=== PATIENT | female | born 1985 | race Caucasian/White ===

== ENCOUNTER 2021-05-01 15:53 | Emergency (ER) | payer MEDICAID ==
[~2021-05-01] VITALS: Ht 162.6 cm; Wt 98.0 kg
--- OUTSIDE RECORDS SUMMARY | 2021-05-01 15:59 | XMS REPORT | CCD ---
Author Author Daria Gautam Organization [facility] Address [address] [place] [address] Phone Care Team Providers Care Chief Librarian Circulation Department Name Role Phone PP Unavailable CCM Unavailable Summary Purpose Interface Exchange Insurance Providers Payer name Policy type / Coverage type Covered democrat ID Effective Begin Date Effective End Date Blue Cross Blue Shield Blue Cross/Blue Shield [id number] Unknown Family history Grandparents Diagnosis Age At Onset Diabetes Unknown Mother Diagnosis Age At Onset No Family Disease Entered N/A Social History Social History Element Codes Description Effective Dates Marital status Unknown 04/05/2021 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 Former smoker 04/05/2021 Number of years using tobacco Unknown [address]: 937347 Currently drinks alcohol 04/05 Frequency of drinks SNOMED CT: 491510634 Drinks rarely 021 Alcohol Misuse Unknown No 04/05/2021 Allergies, Adverse Reactions, Alerts Substance Reaction Codes Entered Date Inactivated Date Status _ Unknown 04/05/2021 No Inactive Date Active Problems Condition Codes Effective Dates Condition Status Encounter for general adult medical examination with a bnormal findings ICD-10: Z00.01 ICD-9: V70.0 04/06/2021 Active Beto's thyroiditis ICD-10: E06.3 ICD-9: 245.2 04/05/2021 Active Primary hypertension ICD-10: I10 ICD-9: 401.9 04/05/2021 Active Type 2 diabetes, controlled, with neuropathy ICD-10: E ICD-9: 250.60 04/05/2021 Active Hypertension Unknown 04/05/2021 Active BMI 40.0-44.9, adult ICD-10: Z68.41 ICD-9: V85.41 04/05/2021 Active Gastroesophageal reflux disease, unspecified whether e sophagitis present ICD-10: K21.9 ICD-9: 530.81 04/05/2021 Active Nasal congestion ICD-10: R09.81 ICD-9: 478.19 04/05/2021 Active Restless leg ICD-10: G25.81 ICD-9: 333.94 04/05/2021 Active Medications Medication Codes Instructions Start Date Stop Date Status Fill Instructions omeprazole 20 mg capsule,delayed release RxNorm: 683690 1 Capsule(s) Oral two times a day 04/05/2021 07/03/2021 Active Invokana 300 mg tablet RxNorm: 9194015 1 Tablet(s) Oral QD 04/05/2007/03/2021 Active levothyroxine 100 mcg tablet RxNorm: 555045 1 Tablet(s) Oral QD 07/03/2021 Active pramipexole 0.25 mg tablet RxNorm: 356437 Take 1 Tablet (s) Oral QPM 2-3 hours before bedtime to replace ropinirole 04/05/2021 05/04/2021 Active gabapentin 100 mg capsule RxNorm: 615971 Take 1 Capsule(s) Oral QD 04/05/2021 07/03/2021 Active fluticasone propionate 50 mcg/actuation nasal spray,suspensi on RxNorm: 6971745 Take 1 [place] Nasal QD in each nostrilas needed 04/05/2021 07/03/2021 A ctive amlodipine 5 mg tablet RxNorm: 284986 1 Tablet(s) Oral QD 04/05/2021 07/03/2021 Active Invokana 300 mg tablet RxNorm: 1583794 1 Tablet(s) Oral QD 04/05/2004/04/2021 Inactive ropinirole 1 mg tablet RxNorm: 633924 1 Tablet(s) Oral QPM 04/05/2004/05/2021 Inactive omeprazole 20 mg capsule,delayed release RxNorm: 685059 1 Capsule(s) Oral two times a day 04/05/2021 2021 Inactive levothyroxine 100 mcg tablet RxNorm: 477155 1 Tablet(s) Oral QD 2021 Inactive amlodipine 5 mg tablet RxNorm: 470613 1 Tablet(s) Oral QD 04/05/2021 2021 Inactive levothyroxine 100 mcg capsule RxNorm: 404988 oral 04/05/2021 Inactive Medication Administered No Medication Administered data Immunizations Vaccine Codes Date Status Influenza CVX: 141 02/17/2021 Covid-19 CVX: 207 09/17/2020 Results Observation Observation Code Item Item Code Result Date S ervice Location COMPLETE BLOOD COUNT [id number] WBC 5.7 10e9/L 04/06/20 21 Unknown COMPLETE BLOOD COUNT [id number] RBC 4.77 10e12/L 2020 Unknown COMPLETE BLOOD COUNT [id number] HEMOGLOBIN 13.7 g/dL 04/06/20 Unknown COMPLETE BLOOD COUNT [id number] HEMATOCRIT 44.3 % 04/06/20 Unknown COMPLETE BLOOD COUNT [id number] MCV 92.9 fL 1 Unknown COMPLETE BLOOD COUNT [id number] MCH 28.7 pg 1 Unknown COMPLETE BLOOD COUNT [id number] MCHC 30.9 g/dL 1 Unknown COMPLETE BLOOD COUNT [id number] PLATELET COUNT 351 10e9/L Unknown COMPLETE BLOOD COUNT [id number] Mean Plt Volume 9.6 fL Unknown COMPLETE BLOOD COUNT [id number] Neut Auto 37.5 % 1 Unknown COMPLETE BLOOD COUNT [id number] Lymph Auto 42.0 % 04/06/20 Unknown COMPLETE BLOOD COUNT [id number] [place] Auto 14.1 % 1 Unknown COMPLETE BLOOD COUNT [id number] RDW 18.7 % 1 Unknown COMPLETE BLOOD COUNT [id number] Eos Auto 5.5 % 1 Unknown COMPLETE BLOOD COUNT [id number] Baso Auto 0.9 % 1 Unknown COMPLETE BLOOD COUNT [id number] Neutrophil Abs 2.14 10e9/L Unknown COMPLETE BLOOD COUNT [id number] Lymphocyte Abs 2.39 10e9/L Unknown COMPLETE BLOOD COUNT [id number] Monocyte Abs 0.80 10e9/L 03/20 Unknown COMPLETE BLOOD COUNT [id number] Eosinophil Abs 0.31 10e9/L Unknown COMPLETE BLOOD COUNT [id number] RDW-SD 62.2 fL Unknown COMPLETE BLOOD COUNT [id number] Basophil Abs 0.05 10e9/L 03/20 Unknown Procedures Procedure Codes Date ROUTINE VENIPUNCTURE CPT-4: 59652 04/06/2021 ASSAY OF FREE THYROXINE CPT-4: 85184 04/06/2021 ASSAY THYROID STIM HORMONE CPT-4: 70104 04/06/2021 COMPREHEN METABOLIC PANEL CPT-4: 34735 04/06/2021 COMPLETE CBC W/AUTO DIFF WBC CPT-4: 83083 04/06/2021 LIPID PANEL CPT-4: 81107 04/06/2021 A1C HPLC CPT-4: 23225 04/06/2021 Vital Signs Date Vital 04/05/2021 Blood Pressure 1: 124/62 Code: 8480-6 BMI: 41.3 Code: 42060-6 Heart Rate 1: 95 bpm Height: 5'2" Code: 8302-2 Respiratory Rate: 17 bpm SpO2: 96% Temperature: 36.7 (C) / 98.0 (F) Weight: 226 lbs Code: 48702-4 Functional Status No Functional Status data Reason For Visit Reason For Visit Effective Dates Notes ~generic 04/05/2021 [address] patient [facility] Encounters Encounter Performer Location Codes Date () NURSE/OUTPATIENT VISIT EST Diagnosis: Primary hypertension[ICD10: I10] Diagnosis: Beto's thyroiditis[ICD10: E06.3] Diagnosis: Type 2 diabetes, controlled, 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] Diagnosis: Encounter for general adult medical examination with abnormal findings[ICD10: Z00.01] Kelly EASTON DO [facility] CPT-4: 53522 04/06/2021 ([id number]) OFFICE/OUTPATIENT VISIT NEW Diagnosis: Primary hypertension[ICD10: I10] Diagnosis: Restless leg[ICD10: G25.81] Diagnosis: Beto's thyroiditis[ICD10: E06.3] Diagnosis: BMI 40.0-44.9, adult[ICD10: Z68.41] Diagnosis: Type 2 diabetes, controlled, 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] Diagnosis: Nasal congestion[ICD10: R09.81] Diagnosis: Gastroesophageal reflux disease, unspecified whether esophagitis present[ICD10: K21.9] Carli BOOQUELINE LawandaAlejandro EASTON DO [facility] CPT-4: 99 204 04/05/2021 Plan of Care Planned Activity Notes Codes Status Date Visit Diagnosis Plan: Nasal congestion Discussion: Vidal nase, can use nasal rinses. ICD-9 : 478.19 ICD-10 : R09.81 04/05/2021 Visit Diagnosis Plan: Restless leg Discussion: Change ropinirole to mirapex ICD-9 : 333.94 ICD-10 : G25.81 04/05/2021 Visit Diagnosis Plan: BMI 40.0-44.9, adult Discussion: Discussed diet, exercise. Patient would like to start medication- will make appt to discuss. ICD-9 : V85.41 ICD-10 : Z68.41 04/05/2021 Visit Diagnosis Plan: Gastroesophageal r eflux disease, unspecified whether esophagitis present Discussion: Stable on omeprazole ICD-9 : 530.81 ICD-10 : K21.9 04/05/2021 Visit Diagnosis Plan: Beto's thyroiditis Discussi on: Will update tsh, free t4 ICD-9 : 245.2 ICD-10 : E06.3 04/05/2021 Visit Diagnosis Plan: Primary hypertension Discussion: Stable on amlodipine- will update fasting lab tomorrow Follow Up: 3 months ICD-9 : 401.9 ICD-10 : I10 04/05/2021 Visit Diagnosis Plan: Type 2 diabetes, controlled, wit h neuropathy Discussion: Taking invokana- will update labs. Restart gabapentin 100 mg daily for neuropathy. Follow Up: 3 months ICD-9 : 250.60 ICD-10 : E11.40 04/05/2021 Appointment: Carli [facility] [phone] [id number] [facility] 04/05/2021 Patient Education: Patient Medication Summary Completed 04/05/2021 Patient Education: [employer] Discount Card Patient Savings Mess age Completed 04/05/2021 Patient Education: Invokana- OptimizeRX Coupon [phone] [email or web address]/[email or web address]/resources/getResource/61/[email or web address]-77 Completed 04/05/2021 Patient Education: gabapentin- OptimizeRX Coupon [phone] https://[email or web address]/samplemd/resources/getResource/61/[email or web address] Completed 04/05/2021 Patient Education: High Blood Pressure Co mpleted 04/05/2021 Instructions No Instructions Medical Equipment No Medical Equipment data Health Concerns Section Health Concerns data not found Goals Section Goals data not found Interventions Section Interventions data not found Health Status Evaluations/Outcomes Section Health Status Evaluations/Outcomes data not found Advance Directives No Advance Directive data
--- OUTSIDE RECORDS SUMMARY | 2021-05-01 15:59 | XMS REPORT | CCD ---
Author Author Daria Gautam Organization [facility] Address [address] [place] [address] Phone Care Team Providers Care Welder First Class Name Role Phone PP Unavailable CCM Unavailable Summary Purpose Interface Exchange Insurance Providers Payer name Policy type / Coverage type Covered republican ID Effective Begin Date Effective End Date Blue Cross Blue Shield Blue Cross/Blue Shield [id number] Unknown Family history Grandparents Diagnosis Age At Onset Diabetes Unknown Mother Diagnosis Age At Onset No Family Disease Entered N/A Social History Social History Element Codes Description Effective Dates Marital status Unknown 04/05/2021 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 Former smoker 04/05/2021 Number of years using tobacco Unknown [address]: 319228 Currently drinks alcohol 04/05 Frequency of drinks SNOMED CT: 326541886 Drinks rarely 021 Alcohol Misuse Unknown No [...] Instructions omeprazole 20 mg capsule,delayed release RxNorm: 511703 1 Capsule(s) Oral two times a day 04/05/2021 07/03/2021 Active Invokana 300 mg tablet RxNorm: 1088848 1 Tablet(s) Oral QD 04/05/2007/03/2021 Active levothyroxine 100 mcg tablet RxNorm: 057441 1 Tablet(s) Oral QD 07/03/2021 Active pramipexole 0.25 mg tablet RxNorm: 796461 Take 1 Tablet (s) Oral QPM 2-3 hours before bedtime to replace ropinirole 04/05/2021 05/04/2021 Active gabapentin 100 mg capsule RxNorm: 488159 Take 1 Capsule(s) Oral QD 04/05/2021 07/03/2021 Active fluticasone propionate 50 mcg/actuation nasal spray,suspensi on RxNorm: 9785513 Take 1 [place] Nasal QD in each nostrilas needed 04/05/2021 07/03/2021 A ctive amlodipine 5 mg tablet RxNorm: 296457 1 Tablet(s) Oral QD 04/05/2021 07/03/2021 Active Invokana 300 mg tablet RxNorm: 0773996 1 Tablet(s) Oral QD 04/05/2004/04/2021 Inactive ropinirole 1 mg tablet RxNorm: 457558 1 Tablet(s) Oral QPM 04/05/2004/05/2021 Inactive omeprazole 20 mg capsule,delayed release RxNorm: 765173 1 Capsule(s) Oral two times a day 04/05/2021 2021 Inactive levothyroxine 100 mcg tablet RxNorm: 241339 1 Tablet(s) Oral QD 2021 Inactive amlodipine 5 mg tablet RxNorm: 738960 1 Tablet(s) Oral QD 04/05/2021 2021 Inactive levothyroxine 100 mcg capsule RxNorm: 359008 oral 04/05/2021 Inactive Medication Administered No Medication Administered data Immunizations Vaccine Codes Date Status Influenza CVX: 141 02/17/2021 Covid-19 CVX: 207 09/17/2020 Results Observation Observation Code Item Item Code Result Date S ervice Location COMPLETE BLOOD COUNT [id number] WBC 5.7 10e9/L 04/06/20 21 Unknown COMPLETE BLOOD COUNT [id number] RBC 4.77 10e12/L 2020 Unknown COMPLETE BLOOD COUNT [id number] HEMOGLOBIN 13.7 g/dL 04/06/20 Unknown COMPLETE BLOOD COUNT [id number] HEMATOCRIT 44.3 % 04/06/20 Unknown COMPLETE BLOOD COUNT [id number] MCV 92.9 fL 1 Unknown COMPLETE BLOOD COUNT [id number] MCH 28.7 pg 1 Unknown COMPLETE BLOOD COUNT [id number] MCHC 30.9 g/dL 1 Unknown COMPLETE BLOOD COUNT [id number] PLATELET COUNT 351 10e9/L Unknown COMPLETE BLOOD COUNT 0876315 Mean Plt Volume 9.6 fL Unknown COMPLETE BLOOD COUNT 2200149 Neut Auto 37.5 % 1 Unknown COMPLETE BLOOD COUNT [id number] Lymph Auto 42.0 % 04/06/20 Unknown COMPLETE BLOOD COUNT 1256373 [place] Auto 14.1 % 1 Unknown COMPLETE BLOOD COUNT 1480804 RDW 18.7 % 1 Unknown COMPLETE BLOOD COUNT 7915967 Eos Auto 5.5 % 1 Unknown COMPLETE BLOOD COUNT 9479321 Baso Auto 0.9 % 1 Unknown COMPLETE BLOOD COUNT 4440382 Neutrophil Abs 2.14 10e9/L Unknown COMPLETE BLOOD COUNT [id number] Lymphocyte Abs 2.39 10e9/L Unknown COMPLETE BLOOD COUNT [id number] Monocyte Abs 0.80 10e9/L 03/20 Unknown COMPLETE BLOOD COUNT [id number] Eosinophil Abs 0.31 10e9/L Unknown COMPLETE BLOOD COUNT [id number] RDW-SD 62.2 fL Unknown COMPLETE BLOOD COUNT [id number] Basophil Abs 0.05 10e9/L 03/20 Unknown Procedures Procedure Codes Date ROUTINE VENIPUNCTURE CPT-4: 25518 04/06/2021 ASSAY OF FREE THYROXINE CPT-4: 11056 04/06/2021 ASSAY THYROID STIM HORMONE CPT-4: 40058 04/06/2021 COMPREHEN METABOLIC PANEL CPT-4: 42899 04/06/2021 COMPLETE CBC W/AUTO DIFF WBC CPT-4: 62678 04/06/2021 LIPID PANEL CPT-4: 37364 04/06/2021 A1C HPLC CPT-4: 99599 04/06/2021 Vital Signs Date Vital 04/05/2021 Blood Pressure 1: 124/62 Code: 8480-6 BMI: 41.3 Code: 84167-1 Heart Rate 1: 95 bpm Height: 5'2" Code: 8302-2 Respiratory Rate: 17 bpm SpO2: 96% Temperature: 36.7 (C) / 98.0 (F) Weight: 226 lbs Code: 21517-9 Functional Status No Functional Status data Reason For Visit Reason For Visit Effective Dates Notes ~generic 04/05/2021 new patient [facility] Encounters Encounter Performer Location Codes Date () NURSE/OUTPATIENT VISIT EST Diagnosis: Primary hypertension[ICD10: I10] Diagnosis: Beto's thyroiditis[ICD10: E06.3] Diagnosis: Type 2 diabetes, controlled, 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] Diagnosis: Encounter for general adult medical examination with abnormal findings[ICD10: Z00.01] Kelly EASTON DO [facility] CPT-4: 63984 04/06/2021 ([id number]) OFFICE/OUTPATIENT VISIT NEW Diagnosis: Primary hypertension[ICD10: I10] Diagnosis: Restless leg[ICD10: G25.81] Diagnosis: Beto's thyroiditis[ICD10: E06.3] Diagnosis: BMI 40.0-44.9, adult[ICD10: Z68.41] Diagnosis: Type 2 diabetes, controlled, 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] Diagnosis: Nasal congestion[ICD10: R09.81] Diagnosis: Gastroesophageal reflux disease, unspecified whether esophagitis present[ICD10: K21.9] Carli BOOQUELINE LawandaAlejandro EASTON DO [facility] CPT-4: 99 204 04/05/2021 Plan of Care [...] 04/05/2021 Appointment: Carli Gautam [facility]Ptel[facility] [phone] [id number] NEW PATIENT 04/05/2021 Patient Education: Patient Medication Summary Completed 04/05/2021 Patient Education: [employer] Discount Card Patient Savings Mess age Completed 04/05/2021 Patient Education: Invokana- OptimizeRX Coupon [phone] [email or web address]://[email or web address]/[email or web address]/resources/getResource/61/[email or web address] Completed 04/05/2021 Patient Education: gabapentin- OptimizeRX Coupon [phone] https://[email or web address]/samplemd/resources/getResource/61/[email or web address] Completed 04/05/2021 Patient Education: High Blood Pressure Co mpleted 04/05/2021 Instructions No Instructions Medical Equipment No Medical Equipment data Health Concerns Section Health Concerns data not found Goals Section Goals data not found Interventions Section Interventions data not found Health Status Evaluations/Outcomes Section Health Status Evaluations/Outcomes data not found Advance Directives No Advance Directive data
--- OUTSIDE RECORDS SUMMARY | 2021-05-01 15:59 | XMS REPORT | CCD ---
Author Author Daria Gautam Organization [facility] Address [address] [place] [address] Phone Care Team Providers Care Social Media Developer Name Role Phone PP Unavailable CCM Unavailable Summary Purpose Interface Exchange Insurance Providers Payer name Policy type / Coverage type Covered democrat ID Effective Begin Date Effective End Date [place] [employer] PRO Medicaid [id number] Unknown Family history Grandparents Diagnosis Age At Onset Diabetes Unknown Mother Diagnosis Age At Onset No Family Disease Entered N/A Social History Social History Element Codes Description Effective Dates Marital status Unknown 04/05/2021 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 Former smoker 04/05/2021 Number of years using tobacco Unknown [address]: 066898 Currently drinks alcohol 04/05 Frequency of drinks SNOMED CT: 332971266 Drinks rarely 021 Alcohol Misuse Unknown No 04/05/2021 Allergies, Adverse Reactions, Alerts Substance Reaction Codes Entered Date Inactivated Date Status _ Unknown 04/05/2021 No Inactive Date Active Problems Condition Codes Effective Dates Condition Status Abdominal distention ICD-10: R14.0 ICD-9: 787.3 05/01/2021 Active Continuous severe abdominal pain ICD-10: R10.9 ICD-9: 789.00 05/01/2021 Active Elevated triglycerides with high cholesterol ICD-10: E 78.2 ICD-9: 272.2 05/01/2021 Active Encounter for general adult medical examination with a bnormal findings ICD-10: Z00.01 ICD-9: V70.0 04/06/2021 Active Beto's thyroiditis ICD-10: E06.3 ICD-9: 245.2 04/05/2021 Active Primary hypertension ICD-10: I10 ICD-9: 401.9 04/05/2021 Active Type 2 diabetes, controlled, with neuropathy ICD-10: E 11.40 ICD-9: 250.60 04/05/2021 Active Hypertension Unknown 04/05/2021 Active BMI 40.0-44.9, adult ICD-10: Z68.41 ICD-9: V85.41 04/05/2021 Active Gastroesophageal reflux disease, unspecified whether e sophagitis present ICD-10: K21.9 ICD-9: 530.81 04/05/2021 Active Nasal congestion ICD-10: R09.81 ICD-9: 478.19 04/05/2021 Active Restless leg ICD-10: G25.81 ICD-9: 333.94 04/05/2021 Active Medications Medication Codes Instructions Start Date Stop Date Status Fill Instructions rosuvastatin 40 mg tablet RxNorm: 968665 1 Tablet(s) Oral QD 2020 No Stop Date Active omeprazole 20 mg capsule,delayed release RxNorm: 896714 1 Capsule(s) Oral two times a day 04/05/2021 07/03/2021 Active Invokana 300 mg tablet RxNorm: 7151848 1 Tablet(s) Oral QD 04/05/2007/03/2021 Active levothyroxine 100 mcg tablet RxNorm: 477244 1 Tablet(s) Oral QD 07/03/2021 Active pramipexole 0.25 mg tablet RxNorm: 497582 Take 1 Tablet (s) Oral QPM 2-3 hours before bedtime to replace ropinirole 04/05/2021 05/04/2021 Active gabapentin 100 mg capsule RxNorm: 304472 Take 1 Capsule(s) Oral QD 04/05/2021 07/03/2021 Active fluticasone propionate 50 mcg/actuation nasal spray,suspensi on RxNorm: 7093439 Take 1 [place] Nasal QD in each nostrilas needed 04/05/2021 07/03/2021 A ctive amlodipine 5 mg tablet RxNorm: 337731 1 Tablet(s) Oral QD 04/05/2021 07/03/2021 Active Invokana 300 mg tablet RxNorm: 2590702 1 Tablet(s) Oral QD 04/05/20 21 2021 Inactive ropinirole 1 mg tablet RxNorm: 893652 1 Tablet(s) Oral QPM 04/05/20 21 04/05/2021 Inactive omeprazole 20 mg capsule,delayed release RxNorm: 916552 1 Capsule(s) Oral two times a day 04/05/2021 2021 Inactive levothyroxine 100 mcg tablet RxNorm: 974301 1 Tablet(s) Oral QD 2021 Inactive amlodipine 5 mg tablet RxNorm: 250477 1 Tablet(s) Oral QD 04/05/2021 2021 Inactive levothyroxine 100 mcg capsule RxNorm: 277906 oral 04/05/2021 Inactive Medication Administered No Medication Administered data Immunizations Vaccine Codes Dose Date Status Influenza CVX: 141 02/17/2021 Covid-19 CVX: 207 09/17/2020 Results Observation Observation Code Item Item Code Result Date S ervice Location COMPLETE BLOOD COUNT [id number] WBC 5.7 10e9/L 04/06/20 21 Unknown COMPLETE BLOOD COUNT [id number] RBC 4.77 10e12/L 2020 Unknown COMPLETE BLOOD COUNT [id number] HEMOGLOBIN 13.7 g/dL 04/06/20 21 Unknown COMPLETE BLOOD COUNT [id number] HEMATOCRIT 44.3 % 04/06/20 21 Unknown COMPLETE BLOOD COUNT [id number] MCV 92.9 fL 1 Unknown COMPLETE BLOOD COUNT [id number] MCH 28.7 pg 1 Unknown COMPLETE BLOOD COUNT [id number] MCHC 30.9 g/dL 1 Unknown COMPLETE BLOOD COUNT [id number] PLATELET COUNT 351 10e9/L Unknown COMPLETE BLOOD COUNT [id number] Mean Plt Volume 9.6 fL Unknown COMPLETE BLOOD COUNT [id number] Neut Auto 37.5 % 1 Unknown COMPLETE BLOOD COUNT [id number] Lymph Auto 42.0 % 04/06/20 21 Unknown COMPLETE BLOOD COUNT [id number] [place] Auto 14.1 % 1 Unknown COMPLETE BLOOD COUNT [id number] RDW 18.7 % 1 Unknown COMPLETE BLOOD COUNT [id number] Eos Auto 5.5 % 1 Unknown COMPLETE BLOOD COUNT [id number] Baso Auto 0.9 % Unknown COMPLETE BLOOD COUNT [id number] Neutrophil Abs 2.14 10e9/L Unknown COMPLETE BLOOD COUNT 1434405 Lymphocyte Abs 2.39 10e9/L Unknown COMPLETE BLOOD COUNT [id number] Monocyte Abs 0.80 10e9/L 03/20 Unknown COMPLETE BLOOD COUNT [id number] Eosinophil Abs 0.31 10e9/L Unknown COMPLETE BLOOD COUNT [id number] RDW-SD 62.2 fL Unknown COMPLETE BLOOD COUNT 8140715 Basophil Abs 0.05 10e9/L 03/20 Unknown MEAN GLUC 8418113 Calc Mean Gluc 126 mg/dL 04/06/2021 Unkn own GFR CALC 0469614 GFR Non Afr Amr >60 mL/min 04/06/2021 Un known GFR CALC 0670743 GFR Afr Amr >60 mL/min 04/06/2021 Unknow n THYROID STIMULATING HORMONE 84829 TSH 4.576 uIU/mL 04/06/2021 Unknown FREE T4 51736 T4 Free 0.90 ng/dL 04/06/2021 Unknown LIPID GROUP 73446 Cholesterol 382 mg/dL 04/06/2021 Unkno wn LIPID GROUP 97281 Triglyceride 636 mg/dL 04/06/2021 Unkn own LIPID GROUP 12226 HDL CHOLESTEROL 42 mg/dL 04/06/2021 U nknown LIPID GROUP 18324 Chol/HDL Ratio 9.10 ratio 04/06/2021 U nknown LIPID GROUP 32104 NON-HDL Chol 340 mg/dL 04/06/2021 Unkn own LIPID GROUP 05851 LDL Cholesterol N/A Trig >400 mg/dL Unknown COMPREHENSIVE METABOLIC 45267 AST 101 U/L 2020 Unknown COMPREHENSIVE METABOLIC 12276 ALT 115 U/L 2020 Unknown COMPREHENSIVE METABOLIC 69614 BUN 10 mg/dL 2020 Unknown COMPREHENSIVE METABOLIC 01686 ALBUMIN 4.6 g/dL 2020 Unknown COMPREHENSIVE METABOLIC 34072 CHLORIDE 100 mmol/L 04/06 Unknown COMPREHENSIVE METABOLIC 00067 Bili Total 0.7 mg/dL 04/06 Unknown COMPREHENSIVE METABOLIC 14929 ALK PHOS 98 U/L 11/18/ 2021 Unknown COMPREHENSIVE METABOLIC 69429 SODIUM 136 mmol/L 04/06 Unknown COMPREHENSIVE METABOLIC 34737 CREATININE 0.66 mg/dL 03/20 Unknown COMPREHENSIVE METABOLIC 94615 CALCIUM 10.0 mg/dL 04/06 Unknown COMPREHENSIVE METABOLIC 89344 POTASSIUM 4.4 mmol/L 04/06 Unknown COMPREHENSIVE METABOLIC 63529 Total Protein 8.0 g/dL Unknown COMPREHENSIVE METABOLIC 37716 Glucose 126 mg/dL 2020 Unknown COMPREHENSIVE METABOLIC 93699 Bicarbonate 24 mmol/L 03/20 Unknown COMPREHENSIVE METABOLIC 73885 AGAP 12 mmol/L 2020 Unknown GLYCOSYLATED HEMOGLOBIN TEST 15371 Hgb A1c 83278-4 6.0 % 1 06/06/2020 Unknown Procedures Procedure Codes Date ROUTINE VENIPUNCTURE CPT-4: 40960 04/06/2021 ASSAY OF FREE THYROXINE CPT-4: 92163 04/06/2021 ASSAY THYROID STIM HORMONE CPT-4: 81404 04/06/2021 COMPREHEN METABOLIC PANEL CPT-4: 24712 04/06/2021 COMPLETE CBC W/AUTO DIFF WBC CPT-4: 04284 04/06/2021 LIPID PANEL CPT-4: 47036 04/06/2021 A1C HPLC CPT-4: 18750 04/06/2021 Vital Signs Date Vital 05/01/2021 Blood Pressure 1: 133/79 Code: 8480-6 BMI: 39.5 Code: 89237-3 Heart Rate 1: 88 bpm Height: 5'2" Code: 8302-2 Respiratory Rate: 16 bpm SpO2: 98% Temperature: 37.0 (C) / 98.6 (F) Weight: 216 lbs Code: 48204-3 04/05/2021 Blood Pressure 1: 124/62 Code: 8480-6 BMI: 41.3 Code: 14639-1 Heart Rate 1: 95 bpm Height: 5'2" Code: 8302-2 Respiratory Rate: 17 bpm SpO2: 96% Temperature: 36.7 (C) / 98.0 (F) Weight: 226 lbs Code: 79633-4 Functional Status No Functional Status data Reason For Visit Reason For Visit Effective Dates Notes abdominal pain 05/01/2021 ~generic 04/05/2021 new patient establis hment Encounters Encounter Performer Location Codes Date (90684) OFFICE/OUTPATIENT VISIT EST Diagnosis: Abdominal distention[ICD10: R14.0] Diagnosis: Continuous severe abdominal pain[ICD10: R10.9] Diagnosis: Elevated triglycerides with high cholesterol[ICD10: E78.2] Carli SWAIN [employer] CPT-4: 21044 05/01/2021 ([id number]) NURSE/OUTPATIENT VISIT EST Diagnosis: Primary hypertension[ICD10: I10] Diagnosis: Beto's thyroiditis[ICD10: E06.3] Diagnosis: Type 2 diabetes, controlled, 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] Diagnosis: Encounter for general adult medical examination with abnormal findings[ICD10: Z00.01] Kelly SWAIN [employer] CPT-4: 41898 04/06/2021 ([id number]) OFFICE/OUTPATIENT VISIT NEW Diagnosis: Primary hypertension[ICD10: I10] Diagnosis: Restless leg[ICD10: G25.81] Diagnosis: Beto's thyroiditis[ICD10: E06.3] Diagnosis: BMI 40.0-44.9, adult[ICD10: Z68.41] Diagnosis: Type 2 diabetes, controlled, 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] Diagnosis: Nasal congestion[ICD10: R09.81] Diagnosis: Gastroesophageal reflux disease, unspecified whether esophagitis present[ICD10: K21.9] Carli SWAIN [employer] CPT-4: 99 204 04/05/2021 Plan of Care Planned Activity Notes Codes Status Date Visit Diagnosis Plan: Continuous severe abdominal pain Discussion: Will need labs, imaging, pain medication-discussed with patient and advised her to present to [facility] ED due to severity of pain/symptoms and possible pancreatitis. Questions answered, patient voiced understanding. ICD-9 : 789.00 ICD-10 : R10.9 05/01/2021 Patient Education: Patient Medication Summary Completed 05/01/2021 [facility]ointment[facility] Kelly [facility] [phone] [id number] [facility] 04/06/2021 Visit Diagnosis Plan: Nasal congestion Discussion: Vidal [...] 04/05/2021 Appointment: Carli Gautam WPtel: [phone] [facility] NEW PATIENT 04/05/2021 Patient Education: Patient Medication Summary Completed 04/05/2021 Patient Education: [employer] Discount Card Patient Savings Mess age Completed 04/05/2021 Patient Education: Invokana- OptimizeRX Coupon [phone] https://www.eMeter/samplemd/resources/getResource/61/ha1p8xdc-85ii-03mk-57 Completed 04/05/2021 Patient Education: gabapentin- OptimizeRX Coupon [phone] https://www.eMeter/samplemd/resources/getResource/61/ui2q54c1-40yt-7g88-a0 Completed 04/05/2021 Patient Education: High Blood Pressure Co mpleted 04/05/2021 Instructions No Instructions Medical Equipment No Medical Equipment data Health Concerns Section Health Concerns data not found Goals Section Goals data not found Interventions Section Interventions data not found Health Status Evaluations/Outcomes Section Health Status Evaluations/Outcomes data not found Advance Directives No Advance Directive data
--- OUTSIDE RECORDS SUMMARY | 2021-05-01 15:59 | XMS REPORT | CCD ---
Author Author Daria Gautam Organization [facility] Address [address] [place] [address] Phone Care Team Providers Care Senior Oracle Database Administrator Name Role Phone PP Unavailable CCM Unavailable Summary Purpose Interface Exchange Insurance Providers Payer name Policy type / Coverage type Covered republican ID Effective Begin Date Effective End Date [place] [employer] PRO Medicaid [id number] Unknown Family history Grandparents Diagnosis Age At Onset Diabetes Unknown Mother Diagnosis Age At Onset No Family Disease Entered N/A Social History Social History Element Codes Description Effective Dates Marital status Unknown 04/05/2021 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 Former smoker 04/05/2021 Number of years using tobacco Unknown [address]: 054077 Currently drinks alcohol 04/05 Frequency of drinks SNOMED CT: 847273450 Drinks rarely 021 Alcohol Misuse Unknown No [...] Fill Instructions rosuvastatin 40 mg tablet RxNorm: 362840 1 Tablet(s) Oral QD 2020 No Stop Date Active omeprazole 20 mg capsule,delayed release RxNorm: 605546 1 Capsule(s) Oral two times a day 04/05/2021 07/03/2021 Active Invokana 300 mg tablet RxNorm: 8726920 1 Tablet(s) Oral QD 04/05/2007/03/2021 Active levothyroxine 100 mcg tablet RxNorm: 321402 1 Tablet(s) Oral QD 07/03/2021 Active pramipexole 0.25 mg tablet RxNorm: 364950 Take 1 Tablet (s) Oral QPM 2-3 hours before bedtime to replace ropinirole 04/05/2021 05/04/2021 Active gabapentin 100 mg capsule RxNorm: 058537 Take 1 Capsule(s) Oral QD 04/05/2021 07/03/2021 Active fluticasone propionate 50 mcg/actuation nasal spray,suspensi on RxNorm: 7260920 Take 1 [place] Nasal QD in each nostrilas needed 04/05/2021 07/03/2021 A ctive amlodipine 5 mg tablet RxNorm: 196526 1 Tablet(s) Oral QD 04/05/2021 07/03/2021 Active Invokana 300 mg tablet RxNorm: 3316321 1 Tablet(s) Oral QD 04/05/20 21 2021 Inactive ropinirole 1 mg tablet RxNorm: 513980 1 Tablet(s) Oral QPM 04/05/20 21 04/05/2021 Inactive omeprazole 20 mg capsule,delayed release RxNorm: 021022 1 Capsule(s) Oral two times a day 04/05/2021 2021 Inactive levothyroxine 100 mcg tablet RxNorm: 783245 1 Tablet(s) Oral QD 2021 Inactive amlodipine 5 mg tablet RxNorm: 620277 1 Tablet(s) Oral QD 04/05/2021 2021 Inactive levothyroxine 100 mcg capsule RxNorm: 067837 oral 04/05/2021 Inactive Medication Administered No Medication Administered data Immunizations Vaccine Codes Dose Date Status Influenza CVX: 141 02/17/2021 Covid-19 CVX: 207 09/17/2020 Results Observation Observation Code Item Item Code Result Date S ervice Location COMPLETE BLOOD COUNT [id number] WBC 5.7 10e9/L 04/06/20 21 Unknown COMPLETE BLOOD COUNT [id number] RBC 4.77 10e12/L 2020 Unknown COMPLETE BLOOD COUNT 7284100 HEMOGLOBIN 13.7 g/dL 04/06/20 21 Unknown COMPLETE BLOOD COUNT 0579598 HEMATOCRIT 44.3 % 04/06/20 21 Unknown COMPLETE BLOOD COUNT 5872576 MCV 92.9 fL 1 Unknown COMPLETE BLOOD COUNT 7720662 MCH 28.7 pg 1 Unknown COMPLETE BLOOD COUNT 7352479 MCHC 30.9 g/dL 1 Unknown COMPLETE BLOOD COUNT 5822660 PLATELET COUNT 351 10e9/L Unknown COMPLETE BLOOD COUNT 1667152 Mean Plt Volume 9.6 fL Unknown COMPLETE BLOOD COUNT 6383659 Neut Auto 37.5 % 1 Unknown COMPLETE BLOOD COUNT 1487934 Lymph Auto 42.0 % 04/06/20 21 Unknown COMPLETE BLOOD COUNT 7017468 [place] Auto 14.1 % 1 Unknown COMPLETE BLOOD COUNT 6992421 RDW 18.7 % 1 Unknown COMPLETE BLOOD COUNT 4099657 Eos Auto 5.5 % 1 Unknown COMPLETE BLOOD COUNT 3930321 Baso Auto 0.9 % Unknown COMPLETE BLOOD COUNT 2803515 Neutrophil Abs 2.14 10e9/L Unknown COMPLETE BLOOD COUNT 9286773 Lymphocyte Abs 2.39 10e9/L Unknown COMPLETE BLOOD COUNT 1549246 Monocyte Abs 0.80 10e9/L 03/20 Unknown COMPLETE BLOOD COUNT 0321679 Eosinophil Abs 0.31 10e9/L Unknown COMPLETE BLOOD COUNT 4865597 RDW-SD 62.2 fL Unknown COMPLETE BLOOD COUNT 1930348 Basophil Abs 0.05 10e9/L 03/20 Unknown MEAN GLUC 1867904 Calc Mean Gluc 126 mg/dL 04/06/2021 Unkn own GFR CALC 1662454 GFR Non Afr Amr >60 mL/min 04/06/2021 Un known GFR CALC 8625383 GFR Afr Amr >60 mL/min 04/06/2021 Unknow n THYROID STIMULATING HORMONE 53781 TSH 4.576 uIU/mL 04/06/2021 Unknown FREE T4 07347 T4 Free 0.90 ng/dL 04/06/2021 Unknown LIPID GROUP 04474 Cholesterol 382 mg/dL 04/06/2021 Unkno wn LIPID GROUP 43857 Triglyceride 636 mg/dL 04/06/2021 Unkn own LIPID GROUP 00217 HDL CHOLESTEROL 42 mg/dL 04/06/2021 U nknown LIPID GROUP 66683 Chol/HDL Ratio 9.10 ratio 04/06/2021 U nknown LIPID GROUP 23494 NON-HDL Chol 340 mg/dL 04/06/2021 Unkn own LIPID GROUP 15021 LDL Cholesterol N/A Trig >400 mg/dL Unknown COMPREHENSIVE METABOLIC 21107 AST 101 U/L 2020 Unknown COMPREHENSIVE METABOLIC 98372 ALT 115 U/L 2020 Unknown COMPREHENSIVE METABOLIC 47054 BUN 10 mg/dL 2020 Unknown COMPREHENSIVE METABOLIC 82067 ALBUMIN 4.6 g/dL 2020 Unknown COMPREHENSIVE METABOLIC 86429 CHLORIDE 100 mmol/L 04/06 Unknown COMPREHENSIVE METABOLIC 54162 Bili Total 0.7 mg/dL 04/06 Unknown COMPREHENSIVE METABOLIC 97937 ALK PHOS 98 U/L 11/18/ 2021 Unknown COMPREHENSIVE METABOLIC 92257 SODIUM 136 mmol/L 04/06 Unknown COMPREHENSIVE METABOLIC 32329 CREATININE 0.66 mg/dL 03/20 Unknown COMPREHENSIVE METABOLIC 85050 CALCIUM 10.0 mg/dL 04/06 Unknown COMPREHENSIVE METABOLIC 92929 POTASSIUM 4.4 mmol/L 04/06 Unknown COMPREHENSIVE METABOLIC 42886 Total Protein 8.0 g/dL Unknown COMPREHENSIVE METABOLIC 39525 Glucose 126 mg/dL 2020 Unknown COMPREHENSIVE METABOLIC 48361 Bicarbonate 24 mmol/L 03/20 Unknown COMPREHENSIVE METABOLIC 37561 AGAP 12 mmol/L 2020 Unknown GLYCOSYLATED HEMOGLOBIN TEST 96757 Hgb A1c 65558-1 6.0 % 1 06/06/2020 Unknown Procedures Procedure Codes Date ROUTINE VENIPUNCTURE CPT-4: 51002 04/06/2021 ASSAY OF FREE THYROXINE CPT-4: 69524 04/06/2021 ASSAY THYROID STIM HORMONE CPT-4: 87748 04/06/2021 COMPREHEN METABOLIC PANEL CPT-4: 23808 04/06/2021 COMPLETE CBC W/AUTO DIFF WBC CPT-4: 77039 04/06/2021 LIPID PANEL CPT-4: 78772 04/06/2021 A1C HPLC CPT-4: 88796 04/06/2021 Vital Signs Date Vital 05/01/2021 Blood Pressure 1: 133/79 Code: 8480-6 BMI: 39.5 Code: 45455-5 Heart Rate 1: 88 bpm Height: 5'2" Code: 8302-2 Respiratory Rate: 16 bpm SpO2: 98% Temperature: 37.0 (C) / 98.6 (F) Weight: 216 lbs Code: 93533-9 04/05/2021 Blood Pressure 1: 124/62 Code: 8480-6 BMI: 41.3 Code: 44385-1 Heart Rate 1: 95 bpm Height: 5'2" Code: 8302-2 Respiratory Rate: 17 bpm SpO2: 96% Temperature: 36.7 (C) / 98.0 (F) Weight: 226 lbs Code: 60765-6 Functional Status No Functional Status data Reason For Visit Reason For Visit Effective Dates Notes abdominal pain 05/01/2021 ~generic 04/05/2021 new patient establis hment Encounters Encounter Performer Location Codes Date (66477) OFFICE/OUTPATIENT VISIT EST Diagnosis: Abdominal distention[ICD10: R14.0] Diagnosis: Continuous severe abdominal pain[ICD10: R10.9] Diagnosis: Elevated triglycerides with high cholesterol[ICD10: E78.2] Carli SWAIN [employer] CPT-4: 12721 05/01/2021 ([id number]) NURSE/OUTPATIENT VISIT EST Diagnosis: Primary hypertension[ICD10: I10] Diagnosis: Beto's thyroiditis[ICD10: E06.3] Diagnosis: Type 2 diabetes, controlled, 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] Diagnosis: Encounter for general adult medical examination with abnormal findings[ICD10: Z00.01] Kelly SWAIN 360T CPT-4: 09693 04/06/2021 ([id number]) OFFICE/OUTPATIENT VISIT NEW Diagnosis: Primary hypertension[ICD10: I10] Diagnosis: Restless leg[ICD10: G25.81] Diagnosis: Beto's thyroiditis[ICD10: E06.3] Diagnosis: BMI 40.0-44.9, adult[ICD10: Z68.41] Diagnosis: Type 2 diabetes, controlled, 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] Diagnosis: Nasal congestion[ICD10: R09.81] Diagnosis: Gastroesophageal reflux disease, unspecified whether esophagitis present[ICD10: K21.9] Carli SWAIN 360T CPT-4: 99 204 04/05/2021 Plan of Care Planned Activity Notes Codes Status Date Visit Diagnosis Plan: Continuous severe abdominal pain Discussion: Will need labs, imaging, pain medication-discussed with patient and advised her to present to [facility] ED due to severity of pain/symptoms and possible pancreatitis. Questions answered, patient voiced understanding. ICD-9 : 789.00 ICD-10 : R10.9 05/01/2021 Patient Education: Patient Medication Summary Completed 05/01/2021 [facility]ment[facility] [phone] [facility] [facility] 04/06/2021 Visit Diagnosis Plan: Nasal [...] 04/05/2021 Appointment: Carli Gautam WPtel: [phone] [facility] NEW PATIENT 04/05/2021 Patient Education: Patient Medication Summary Completed 04/05/2021 Patient Education: [employer] Discount Card Patient Savings Mess age Completed 04/05/2021 Patient Education: Invokana- OptimizeRX Coupon [phone] https://[email or web address]/samplemd/resources/getResource/61/[email or web address]-77wa-58kv-06 Completed 04/05/2021 Patient Education: gabapentin- OptimizeRX Coupon [id number] https://www.[email or web address]/samplemd/resources/getResource/61/[email or web address]-[email or web address]-[email or web address] Completed 04/05/2021 Patient Education: High Blood Pressure Co mpleted 04/05/2021 Instructions No Instructions Medical Equipment No Medical Equipment data Health Concerns Section Health Concerns data not found Goals Section Goals data not found Interventions Section Interventions data not found Health Status Evaluations/Outcomes Section Health Status Evaluations/Outcomes data not found Advance Directives No Advance Directive data
--- OUTSIDE RECORDS SUMMARY | 2021-05-01 16:00 | XMS REPORT | CCD ---
Author Author Daria Gautam Organization [facility] Address [address] [place] [address] Phone Care Team Providers Care Commercial Account Manager Name Role Phone PP Unavailable CCM Unavailable Summary Purpose Interface Exchange Insurance Providers Payer name Policy type / Coverage type Covered democrat ID Effective Begin Date Effective End Date Blue Cross Blue Shield Blue Cross/Blue Shield [id number] Unknown Family history Grandparents Diagnosis Age At Onset Diabetes Unknown Mother Diagnosis Age At Onset No Family Disease Entered N/A Social History Social History Element Codes Description Effective Dates Marital status Unknown 04/05/2021 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 Former smoker 04/05/2021 Number of years using tobacco Unknown [address]: 736283 Currently drinks alcohol 04/05 Frequency of drinks SNOMED CT: 631542563 Drinks rarely 021 Alcohol Misuse Unknown No [...] Instructions omeprazole 20 mg capsule,delayed release RxNorm: 304408 1 Capsule(s) Oral two times a day 04/05/2021 07/03/2021 Active Invokana 300 mg tablet RxNorm: 3850093 1 Tablet(s) Oral QD 04/05/2007/03/2021 Active levothyroxine 100 mcg tablet RxNorm: 952619 1 Tablet(s) Oral QD 07/03/2021 Active pramipexole 0.25 mg tablet RxNorm: 016678 Take 1 Tablet (s) Oral QPM 2-3 hours before bedtime to replace ropinirole 04/05/2021 05/04/2021 Active gabapentin 100 mg capsule RxNorm: 046870 Take 1 Capsule(s) Oral QD 04/05/2021 07/03/2021 Active fluticasone propionate 50 mcg/actuation nasal spray,suspensi on RxNorm: 1843363 Take 1 [place] Nasal QD in each nostrilas needed 04/05/2021 07/03/2021 A ctive amlodipine 5 mg tablet RxNorm: 133636 1 Tablet(s) Oral QD 04/05/2021 07/03/2021 Active Invokana 300 mg tablet RxNorm: 9224755 1 Tablet(s) Oral QD 04/05/2004/04/2021 Inactive ropinirole 1 mg tablet RxNorm: 903661 1 Tablet(s) Oral QPM 04/05/2004/05/2021 Inactive omeprazole 20 mg capsule,delayed release RxNorm: 326372 1 Capsule(s) Oral two times a day 04/05/2021 2021 Inactive levothyroxine 100 mcg tablet RxNorm: 680691 1 Tablet(s) Oral QD 2021 Inactive amlodipine 5 mg tablet RxNorm: 590317 1 Tablet(s) Oral QD 04/05/2021 2021 Inactive levothyroxine 100 mcg capsule RxNorm: 235724 oral 04/05/2021 Inactive Medication Administered No Medication Administered data Immunizations Vaccine Codes Date Status Influenza CVX: 141 02/17/2021 Covid-19 CVX: 207 09/17/2020 Results No Results data Procedures Procedure Codes Date ROUTINE VENIPUNCTURE CPT-4: 45830 04/06/2021 ASSAY OF FREE THYROXINE CPT-4: 08520 04/06/2021 ASSAY THYROID STIM HORMONE CPT-4: 46056 04/06/2021 COMPREHEN METABOLIC PANEL CPT-4: 48329 04/06/2021 COMPLETE CBC W/AUTO DIFF WBC CPT-4: 27912 04/06/2021 LIPID PANEL CPT-4: 77623 04/06/2021 A1C HPLC CPT-4: 75034 04/06/2021 Vital Signs Date Vital 04/05/2021 Blood Pressure 1: 124/62 Code: 8480-6 BMI: 41.3 Code: 72753-9 Heart Rate 1: 95 bpm Height: 5'2" Code: 8302-2 Respiratory Rate: 17 bpm SpO2: 96% Temperature: 36.7 (C) / 98.0 (F) Weight: 226 lbs Code: 27357-0 Functional Status No Functional Status data Reason For Visit Reason For Visit Effective Dates Notes ~generic 04/05/2021 new patient [facility] Encounters Encounter Performer Location Codes Date () NURSE/OUTPATIENT VISIT EST Diagnosis: Primary hypertension[ICD10: I10] Diagnosis: Beto's thyroiditis[ICD10: E06.3] Diagnosis: Type 2 diabetes, controlled, 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] Diagnosis: Encounter for general adult medical examination with abnormal findings[ICD10: Z00.01] [facility] CPT-4: 63708 04/06/2021 ([id number]) OFFICE/OUTPATIENT VISIT NEW Diagnosis: Primary hypertension[ICD10: I10] Diagnosis: Restless leg[ICD10: G25.81] Diagnosis: Beto's thyroiditis[ICD10: E06.3] Diagnosis: BMI 40.0-44.9, adult[ICD10: Z68.41] Diagnosis: Type 2 diabetes, controlled, 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] Diagnosis: Nasal congestion[ICD10: R09.81] Diagnosis: Gastroesophageal reflux disease, unspecified whether esophagitis present[ICD10: K21.9] Carli Gautam [facility] CPT-4: 99 204 04/05/2021 Plan of Care [...] 04/05/2021 Appointment: Carli Gautam [facility]el[facility] [phone] [facility] NEW [facility] 04/05/2021 Patient Education: Patient Medication Summary Completed 04/05/2021 Patient Education: [employer] Discount Card Patient Savings Mess age Completed 04/05/2021 Patient Education: Invokana- OptimizeRX Coupon [id number] https://www.[employer].com/samplemd/resources/getResource/61/ac8i2qsr-93qi-32jo-12 Completed 04/05/2021 Patient Education: gabapentin- OptimizeRX Coupon [id number] https://www.[employer]/samplemd/resources/getResource/61/[email or web address]-0z93-m1 Completed 04/05/2021 Patient Education: High Blood Pressure Co mpleted 04/05/2021 Instructions No Instructions Medical Equipment No Medical Equipment data Health Concerns Section Health Concerns data not found Goals Section Goals data not found Interventions Section Interventions data not found Health Status Evaluations/Outcomes Section Health Status Evaluations/Outcomes data not found Advance Directives No Advance Directive data
--- OUTSIDE RECORDS SUMMARY | 2021-05-01 16:00 | XMS REPORT | CCD ---
Author Author Daria Easton D.O. Organization [facility] Address [address] [place] [address] Phone Care Team Providers Care Editor News Name Role Phone PP Unavailable CCM Unavailable Summary Purpose Interface Exchange Insurance Providers Payer name Policy type / Coverage type Covered alliance party ID Effective Begin Date Effective End Date Blue Cross Blue Shield Blue Cross/Blue Shield [id number] Unknown Family history Grandparents Diagnosis Age At Onset Diabetes Unknown Mother Diagnosis Age At Onset No Family Disease Entered N/A Social History Social History Element Codes Description Effective Dates Marital status Unknown 04/05/2021 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 Former smoker 04/05/2021 Number of years using tobacco Unknown [address]: 388054 Currently drinks alcohol 04/05 Frequency of drinks SNOMED CT: 331512361 Drinks rarely 021 Alcohol Misuse Unknown No [...] adult ICD-10: Z68.41 ICD-9: V85.41 04/05/2021 Active Restless leg ICD-10: G25.81 ICD-9: 333.94 04/05/2021 Active Medications Medication Codes Instructions Start Date Stop Date Status Fill Instructions omeprazole 20 mg capsule,delayed release RxNorm: 867803 1 Capsule(s) Oral two times a day 04/05/2021 07/03/2021 Active Invokana 300 mg tablet RxNorm: 7557104 1 Tablet(s) Oral QD 04/05/20 21 07/03/2021 Active levothyroxine 100 mcg tablet RxNorm: 452149 1 Tablet(s) Oral QD 07/03/2021 Active pramipexole 0.25 mg tablet RxNorm: 158928 Take 1 Tablet (s) Oral QPM 2-3 hours before bedtime to replace ropinirole 04/05/2021 05/04/2021 Active gabapentin 100 mg capsule RxNorm: 192628 Take 1 Capsule(s) Oral QD 04/05/2021 07/03/2021 Active fluticasone propionate 50 mcg/actuation nasal spray,suspensi on RxNorm: 8251199 Take 1 [place] Nasal QD in each nostrilas needed 04/05/2021 07/03/2021 A ctive amlodipine 5 mg tablet RxNorm: 884525 1 Tablet(s) Oral QD 04/05/2021 07/03/2021 Active Invokana 300 mg tablet RxNorm: 5707181 1 Tablet(s) Oral QD 04/05/2004/04/2021 Inactive ropinirole 1 mg tablet RxNorm: 387020 1 Tablet(s) Oral QPM 04/05/20 21 04/05/2021 Inactive omeprazole 20 mg capsule,delayed release RxNorm: 028929 1 Capsule(s) Oral two times a day 04/05/2021 2021 Inactive levothyroxine 100 mcg tablet RxNorm: 125239 1 Tablet(s) Oral QD 2021 Inactive amlodipine 5 mg tablet RxNorm: 478549 1 Tablet(s) Oral QD 04/05/2021 2021 Inactive levothyroxine 100 mcg capsule RxNorm: 900503 oral 04/05/2021 Inactive Medication Administered No Medication Administered data Immunizations Vaccine Codes Date Status Influenza CVX: 141 02/17/2021 Covid-19 CVX: 207 09/17/2020 Results No Results data Procedures Procedure Codes Date ROUTINE VENIPUNCTURE CPT-4: 66380 04/06/2021 ASSAY OF FREE THYROXINE CPT-4: 37191 04/06/2021 ASSAY THYROID STIM HORMONE CPT-4: 89822 04/06/2021 COMPREHEN METABOLIC PANEL CPT-4: 37463 04/06/2021 COMPLETE CBC W/AUTO DIFF WBC CPT-4: 50321 04/06/2021 LIPID PANEL CPT-4: 69659 04/06/2021 A1C HPLC CPT-4: 31918 04/06/2021 Vital Signs No Vital signs data Functional Status No Functional Status data Reason For Visit No Reason For Visit data Encounters Encounter Performer Location Codes Date () NURSE/OUTPATIENT VISIT EST Diagnosis: Primary hypertension[ICD10: I10] Diagnosis: Beto's thyroiditis[ICD10: E06.3] Diagnosis: Type 2 diabetes, controlled, 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] Diagnosis: Encounter for general adult medical examination with abnormal findings[ICD10: Z00.01] [facility] CPT-4: 84450 04/06/2021 Plan of Care Planned Activity Notes Codes Status Date Appointment: Dain Carli WPtel[facility] [phone] [id number] NEW PATIENT 04/05/2021 Instructions No Instructions Medical Equipment No Medical Equipment data Health Concerns Section Health Concerns data not found Goals Section Goals data not found Interventions Section Interventions data not found Health Status Evaluations/Outcomes Section Health Status Evaluations/Outcomes data not found Advance Directives No Advance Directive data
--- OUTSIDE RECORDS SUMMARY | 2021-05-01 16:00 | XMS REPORT | CCD ---
Author Author Daria Easton D.O. Organization [facility] Address [address] [place] [address] Phone Care Team Providers Care Recreation Manager Name Role Phone PP Unavailable CCM Unavailable Summary Purpose Interface Exchange Insurance Providers Payer name Policy type / Coverage type Covered alliance party ID Effective Begin Date Effective End Date Blue Cross Blue Shield Blue Cross/Blue Shield [id number] Unknown Family history Grandparents Diagnosis Age At Onset Diabetes Unknown Mother Diagnosis Age At Onset No Family Disease Entered N/A Social History Social History Element Codes Description Effective Dates Marital status Unknown 04/05/2021 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 Former smoker 04/05/2021 Number of years using tobacco Unknown [address]: 945149 Currently drinks alcohol 04/05 Frequency of drinks SNOMED CT: 025816305 Drinks rarely 021 Alcohol Misuse Unknown No [...] 2 diabetes, controlled, with neuropathy ICD-10: E .40 ICD-9: 250.60 04/05/2021 Active Hypertension Unknown 04/05/2021 [...] Instructions omeprazole 20 mg capsule,delayed release RxNorm: 526160 1 Capsule(s) Oral two times a day 04/05/2021 07/03/2021 Active Invokana 300 mg tablet RxNorm: 8616762 1 Tablet(s) Oral QD 04/05/2007/03/2021 Active levothyroxine 100 mcg tablet RxNorm: 826289 1 Tablet(s) Oral QD 07/03/2021 Active pramipexole 0.25 mg tablet RxNorm: 634502 Take 1 Tablet (s) Oral QPM 2-3 hours before bedtime to replace ropinirole 04/05/2021 05/04/2021 Active gabapentin 100 mg capsule RxNorm: 916582 Take 1 Capsule(s) Oral QD 04/05/2021 07/03/2021 Active fluticasone propionate 50 mcg/actuation nasal spray,suspensi on RxNorm: 9056415 Take 1 [place] Nasal QD in each nostrilas needed 04/05/2021 07/03/2021 A ctive amlodipine 5 mg tablet RxNorm: 487261 1 Tablet(s) Oral QD 04/05/2021 07/03/2021 Active Invokana 300 mg tablet RxNorm: 4179780 1 Tablet(s) Oral QD 04/05/2004/04/2021 Inactive ropinirole 1 mg tablet RxNorm: 806128 1 Tablet(s) Oral QPM 04/05/2004/05/2021 Inactive omeprazole 20 mg capsule,delayed release RxNorm: 659415 1 Capsule(s) Oral two times a day 04/05/2021 2021 Inactive levothyroxine 100 mcg tablet RxNorm: 648619 1 Tablet(s) Oral QD 2021 Inactive amlodipine 5 mg tablet RxNorm: 863068 1 Tablet(s) Oral QD 04/05/2021 2021 Inactive levothyroxine 100 mcg capsule RxNorm: 989025 oral 04/05/2021 Inactive Medication Administered No Medication Administered data Immunizations Vaccine Codes Date Status Influenza CVX: 141 02/17/2021 Covid-19 CVX: 207 09/17/2020 Results No Results data Procedures Procedure Codes Date ROUTINE VENIPUNCTURE CPT-4: 18190 04/06/2021 ASSAY OF FREE THYROXINE CPT-4: 07265 04/06/2021 ASSAY THYROID STIM HORMONE CPT-4: 88897 04/06/2021 COMPREHEN METABOLIC PANEL CPT-4: 05180 04/06/2021 COMPLETE CBC W/AUTO DIFF WBC CPT-4: 06749 04/06/2021 LIPID PANEL CPT-4: 07691 04/06/2021 A1C HPLC CPT-4: 76416 04/06/2021 Vital Signs No Vital signs data Functional Status No Functional Status data Reason For Visit No Reason For Visit data Encounters Encounter Performer Location Codes Date () NURSE/OUTPATIENT VISIT EST Diagnosis: Primary hypertension[ICD10: I10] Diagnosis: Beto's thyroiditis[ICD10: E06.3] Diagnosis: Type 2 diabetes, controlled, 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] Diagnosis: Encounter for general adult medical examination with abnormal findings[ICD10: Z00.01] [facility] CPT-4: 40516 04/06/2021 Plan of Care Planned Activity Notes Codes Status Date Appointment: Fam [facility]autam[facility] [phone] [id number] NEW PATIENT 04/05/2021 Instructions No Instructions Medical Equipment No Medical Equipment data Health Concerns Section Health Concerns data not found Goals Section Goals data not found Interventions Section Interventions data not found Health Status Evaluations/Outcomes Section Health Status Evaluations/Outcomes data not found Advance Directives No Advance Directive data
--- OUTSIDE RECORDS SUMMARY | 2021-05-01 16:00 | XMS REPORT | CCD ---
Author Author Daria Easton D.O. Organization [facility] Address [address] [place] [address] Phone Care Team Providers Care Acetylene Gas Compressor Name Role Phone PP Unavailable CCM Unavailable Summary Purpose Interface Exchange Insurance Providers Payer name Policy type / Coverage type Covered green party ID Effective Begin Date Effective End Date Blue Cross Blue Shield Blue Cross/Blue Shield [id number] Unknown Family history Grandparents Diagnosis Age At Onset Diabetes Unknown Mother Diagnosis Age At Onset No Family Disease Entered N/A Social History Social History Element Codes Description Effective Dates Marital status Unknown 04/05/2021 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 Former smoker 04/05/2021 Number of years using tobacco Unknown [address]: 230289 Currently drinks alcohol 04/05 Frequency of drinks SNOMED CT: 897376903 Drinks rarely 021 Alcohol Misuse Unknown No [...] Instructions omeprazole 20 mg capsule,delayed release RxNorm: 860666 1 Capsule(s) Oral two times a day 04/05/2021 07/03/2021 Active Invokana 300 mg tablet RxNorm: 5141915 1 Tablet(s) Oral QD 04/05/20 21 07/03/2021 Active levothyroxine 100 mcg tablet RxNorm: 282510 1 Tablet(s) Oral QD 07/03/2021 Active pramipexole 0.25 mg tablet RxNorm: 911385 Take 1 Tablet (s) Oral QPM 2-3 hours before bedtime to replace ropinirole 04/05/2021 05/04/2021 Active gabapentin 100 mg capsule RxNorm: 671410 Take 1 Capsule(s) Oral QD 04/05/2021 07/03/2021 Active fluticasone propionate 50 mcg/actuation nasal spray,suspensi on RxNorm: 2132892 Take 1 [place] Nasal QD in each nostrilas needed 04/05/2021 07/03/2021 A ctive amlodipine 5 mg tablet RxNorm: 401545 1 Tablet(s) Oral QD 04/05/2021 07/03/2021 Active Invokana 300 mg tablet RxNorm: 6541470 1 Tablet(s) Oral QD 04/05/2004/04/2021 Inactive ropinirole 1 mg tablet RxNorm: 990752 1 Tablet(s) Oral QPM 04/05/20 21 04/05/2021 Inactive omeprazole 20 mg capsule,delayed release RxNorm: 630440 1 Capsule(s) Oral two times a day 04/05/2021 2021 Inactive levothyroxine 100 mcg tablet RxNorm: 169534 1 Tablet(s) Oral QD 2021 Inactive amlodipine 5 mg tablet RxNorm: 899855 1 Tablet(s) Oral QD 04/05/2021 2021 Inactive levothyroxine 100 mcg capsule RxNorm: 164846 oral 04/05/2021 Inactive Medication Administered No Medication Administered data Immunizations Vaccine Codes Date Status Influenza CVX: 141 02/17/2021 Covid-19 CVX: 207 09/17/2020 Results No Results data Procedures Procedure Codes Date ROUTINE VENIPUNCTURE CPT-4: 65782 04/06/2021 ASSAY OF FREE THYROXINE CPT-4: 39010 04/06/2021 ASSAY THYROID STIM HORMONE CPT-4: 01339 04/06/2021 COMPREHEN METABOLIC PANEL CPT-4: 05182 04/06/2021 COMPLETE CBC W/AUTO DIFF WBC CPT-4: 24489 04/06/2021 LIPID PANEL CPT-4: 44828 04/06/2021 A1C HPLC CPT-4: 31889 04/06/2021 Vital Signs No Vital signs data Functional Status No Functional Status data Reason For Visit No Reason For Visit data Encounters Encounter Performer Location Codes Date () NURSE/OUTPATIENT VISIT EST Diagnosis: Primary hypertension[ICD10: I10] Diagnosis: Beto's thyroiditis[ICD10: E06.3] Diagnosis: Type 2 diabetes, controlled, 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
--- OUTSIDE RECORDS SUMMARY | 2021-05-01 16:00 | XMS REPORT | CCD ---
Author Author Daria Easton D.O. Organization [facility] Address [address] [place] [address] Phone Care Team Providers Care Wire Tester Name Role Phone PP Unavailable CCM Unavailable Summary Purpose Interface Exchange Insurance Providers Payer name Policy type / Coverage type Covered alliance party ID Effective Begin Date Effective End Date Blue Cross Blue Shield Blue Cross/Blue Shield [id number] Unknown Family history Grandparents Diagnosis Age At Onset Diabetes Unknown Mother Diagnosis Age At Onset No Family Disease Entered N/A Social History Social History Element Codes Description Effective Dates Marital status Unknown 04/05/2021 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 Former smoker 04/05/2021 Number of years using tobacco Unknown [address]: 361127 Currently drinks alcohol 04/05 Frequency of drinks SNOMED CT: 255206682 Drinks rarely 021 Alcohol Misuse Unknown No [...] Instructions omeprazole 20 mg capsule,delayed release RxNorm: 760232 1 Capsule(s) Oral two times a day 04/05/2021 07/03/2021 Active Invokana 300 mg tablet RxNorm: 5081819 1 Tablet(s) Oral QD 04/05/2007/03/2021 Active levothyroxine 100 mcg tablet RxNorm: 434900 1 Tablet(s) Oral QD 07/03/2021 Active pramipexole 0.25 mg tablet RxNorm: 589034 Take 1 Tablet (s) Oral QPM 2-3 hours before bedtime to replace ropinirole 04/05/2021 05/04/2021 Active gabapentin 100 mg capsule RxNorm: 696627 Take 1 Capsule(s) Oral QD 04/05/2021 07/03/2021 Active fluticasone propionate 50 mcg/actuation nasal spray,suspensi on RxNorm: 3132446 Take 1 [place] Nasal QD in each nostrilas needed 04/05/2021 07/03/2021 A ctive amlodipine 5 mg tablet RxNorm: 594884 1 Tablet(s) Oral QD 04/05/2021 07/03/2021 Active Invokana 300 mg tablet RxNorm: 5865764 1 Tablet(s) Oral QD 04/05/2004/04/2021 Inactive ropinirole 1 mg tablet RxNorm: 627626 1 Tablet(s) Oral QPM 04/05/2004/05/2021 Inactive omeprazole 20 mg capsule,delayed release RxNorm: 079882 1 Capsule(s) Oral two times a day 04/05/2021 2021 Inactive levothyroxine 100 mcg tablet RxNorm: 049929 1 Tablet(s) Oral QD 2021 Inactive amlodipine 5 mg tablet RxNorm: 647602 1 Tablet(s) Oral QD 04/05/2021 2021 Inactive levothyroxine 100 mcg capsule RxNorm: 927552 oral 04/05/2021 Inactive Medication Administered No Medication Administered data Immunizations Vaccine Codes Date Status Influenza CVX: 141 02/17/2021 Covid-19 CVX: 207 09/17/2020 Results No Results data Procedures Procedure Codes Date ROUTINE VENIPUNCTURE CPT-4: 45096 04/06/2021 ASSAY OF FREE THYROXINE CPT-4: 42840 04/06/2021 ASSAY THYROID STIM HORMONE CPT-4: 65438 04/06/2021 COMPREHEN METABOLIC PANEL CPT-4: 75883 04/06/2021 COMPLETE CBC W/AUTO DIFF WBC CPT-4: 82946 04/06/2021 LIPID PANEL CPT-4: 25093 04/06/2021 A1C HPLC CPT-4: 76654 04/06/2021 Vital Signs No Vital signs data Functional Status No Functional Status data Reason For Visit No Reason For Visit data Encounters Encounter Performer Location Codes Date () NURSE/OUTPATIENT VISIT EST Diagnosis: Primary hypertension[ICD10: I10] Diagnosis: Beto's thyroiditis[ICD10: E06.3] Diagnosis: Type 2 diabetes, controlled, 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] Diagnosis: Encounter for general adult medical examination with abnormal findings[ICD10: Z00.01] [facility] CPT-4: 24758 04/06/2021 Plan of Care Planned Activity Notes Codes Status Date Appointment: Fam Gautamah WPtel: [address] [facility] [place] NEW [place]IENT 04/05/2021 Instructions No Instructions Medical Equipment No Medical Equipment data Health Concerns Section Health Concerns data not found Goals Section Goals data not found Interventions Section Interventions data not found Health Status Evaluations/Outcomes Section Health Status Evaluations/Outcomes data not found Advance Directives No Advance Directive data
--- OUTSIDE RECORDS SUMMARY | 2021-05-01 16:00 | XMS REPORT | CCD ---
Author Author Daria Gautam Organization [facility] Address [address] [place] [address] Phone Care Team Providers Care Fermenter Name Role Phone PP Unavailable CCM Unavailable Summary Purpose Interface Exchange Insurance Providers Payer name Policy type / Coverage type Covered alliance party ID Effective Begin Date Effective End Date Blue Cross Blue Shield Blue Cross/Blue Shield [id number] Unknown Family history Grandparents Diagnosis Age At Onset Diabetes Unknown Mother Diagnosis Age At Onset No Family Disease Entered N/A Social History Social History Element Codes Description Effective Dates Marital status Unknown 04/05/2021 Employment Unknown 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 Former smoker 04/05/2021 Number of years using tobacco Unknown [address]: 682746 Currently drinks alcohol 04/05 Frequency of drinks SNOMED CT: 358126813 Drinks rarely 021 Alcohol Misuse Unknown No [...] Instructions omeprazole 20 mg capsule,delayed release RxNorm: 986316 1 Capsule(s) Oral two times a day 04/05/2021 07/03/2021 Active Invokana 300 mg tablet RxNorm: 8341598 1 Tablet(s) Oral QD 04/05/2007/03/2021 Active levothyroxine 100 mcg tablet RxNorm: 105185 1 Tablet(s) Oral QD 07/03/2021 Active pramipexole 0.25 mg tablet RxNorm: 554557 Take 1 Tablet (s) Oral QPM 2-3 hours before bedtime to replace ropinirole 04/05/2021 05/04/2021 Active gabapentin 100 mg capsule RxNorm: 736948 Take 1 Capsule(s) Oral QD 04/05/2021 07/03/2021 Active fluticasone propionate 50 mcg/actuation nasal spray,suspensi on RxNorm: 3830459 Take 1 [place] Nasal QD in each nostrilas needed 04/05/2021 07/03/2021 A ctive amlodipine 5 mg tablet RxNorm: 829989 1 Tablet(s) Oral QD 04/05/2021 07/03/2021 Active Invokana 300 mg tablet RxNorm: 6690116 1 Tablet(s) Oral QD 04/05/2004/04/2021 Inactive ropinirole 1 mg tablet RxNorm: 102316 1 Tablet(s) Oral QPM 04/05/2004/05/2021 Inactive omeprazole 20 mg capsule,delayed release RxNorm: 432989 1 Capsule(s) Oral two times a day 04/05/2021 2021 Inactive levothyroxine 100 mcg tablet RxNorm: 099283 1 Tablet(s) Oral QD 2021 Inactive amlodipine 5 mg tablet RxNorm: 244213 1 Tablet(s) Oral QD 04/05/2021 2021 Inactive levothyroxine 100 mcg capsule RxNorm: 363941 oral 04/05/2021 Inactive Medication Administered No Medication Administered data Immunizations Vaccine Codes Date Status Influenza CVX: 141 02/17/2021 Covid-19 CVX: 207 09/17/2020 Results No Results data Procedures Procedure Codes Date ROUTINE VENIPUNCTURE CPT-4: 40240 04/06/2021 ASSAY OF FREE THYROXINE CPT-4: 22701 04/06/2021 ASSAY THYROID STIM HORMONE CPT-4: 42338 04/06/2021 COMPREHEN METABOLIC PANEL CPT-4: 43361 04/06/2021 COMPLETE CBC W/AUTO DIFF WBC CPT-4: 43509 04/06/2021 LIPID PANEL CPT-4: 99283 04/06/2021 A1C HPLC CPT-4: 24833 04/06/2021 Vital Signs Date Vital 04/05/2021 Blood Pressure 1: 124/62 Code: 8480-6 BMI: 41.3 Code: 19581-2 Heart Rate 1: 95 bpm Height: 5'2" Code: 8302-2 Respiratory Rate: 17 bpm SpO2: 96% Temperature: 36.7 (C) / 98.0 (F) Weight: 226 lbs Code: 12378-0 Functional Status No Functional Status data Reason For Visit Reason For Visit Effective Dates Notes ~generic 04/05/2021 new patient [facility] Encounters Encounter Performer Location Codes Date () NURSE/OUTPATIENT VISIT EST Diagnosis: Primary hypertension[ICD10: I10] Diagnosis: Beto's thyroiditis[ICD10: E06.3] Diagnosis: Type 2 diabetes, controlled, 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 CPT-4: 99 204 04/05/2021 Plan of [...] 04/05/2021 Appointment: Carli Gautam [facility] [phone] [facility] [id number] NEW PATIENT 04/05/2021 Patient Education: Patient Medication Summary Completed 04/05/2021 Patient Education: [employer] Disc[employer] Card Patient Savings Mess age Completed 04/05/2021 Patient Education: Invokana- Optimize[employer] Coupon [phone] https://www.Wipebook.com/samplemd/resources/getResource/61/qe7c9ack-91so-87ik-83 Completed 04/05/2021 Patient Education: gabapentin- OptimizeRX Coupon [phone] https://www.Wipebook.hotelsmap.com/samplemd/resources/getResource/61/ik8h49c9-48al-3p03-t5 Completed 04/05/2021 Patient Education: High Blood Pressure Co mpleted 04/05/2021 Instructions No Instructions Medical Equipment No Medical Equipment data Health Concerns Section Health Concerns data not found Goals Section Goals data not found Interventions Section Interventions data not found Health Status Evaluations/Outcomes Section Health Status Evaluations/Outcomes data not found Advance Directives No Advance Directive data
[2021-05-01 16:22] LABS: BASOPHILS # (AUTO) 0.1 10^3/uL (0.0-0.1); BASOPHILS % (AUTO) 1 % (0-10); EOSINOPHILS # (AUTO) 0.3 10^3/uL (0.0-0.3); EOSINOPHILS % (AUTO) 4 % (0-10); HEMATOCRIT 43 % (35-52); HEMOGLOBIN 14.3 g/dL (11.5-16.0); LYMPHOCYTES # (AUTO) 2.2 10^3/uL (1.0-4.0); LYMPHOCYTES % (AUTO) 26 % (12-44); MEAN CORPUSCULAR HEMOGLOBIN 30 pg (25-34); MEAN CORPUSCULAR HGB CONC 33 g/dL (32-36); MEAN CORPUSCULAR VOLUME 90 fL (80-99); MEAN PLATELET VOLUME 9.4 fL (9.0-12.2); MONOCYTES # (AUTO) 0.7 10^3/uL (0.0-1.0); MONOCYTES % (AUTO) 8 % (0-12); NEUTROPHILS # (AUTO) 4.9 10^3/uL (1.8-7.8); NEUTROPHILS % (AUTO) 60 % (42-75); PLATELET COUNT 214 10^3/uL (130-400); WHITE BLOOD COUNT 8.3 10^3/uL (4.3-11.0)
[2021-05-01] MEDS ORDERED: FAMOTIDINE 20 MG (PEPCID) TABLET PO STA (16:23)
[2021-05-01] MEDS ORDERED: LACTATED RINGERS 1,000 ML IV STA (16:23)
[2021-05-01] MEDS ORDERED: ANTACID SUSP 30 ML UDC (MYLANTA) PO ONE (16:30)
[2021-05-01] MEDS ORDERED: LIDOCAINE 2% VISCOUS 15 ML UDC PO ONE (16:30)
[2021-05-01 16:32] LABS: BILIRUBIN,URINE NEGATIVE (NEGATIVE); CLARITY,URINE CLEAR; COLOR,URINE YELLOW; GLUCOSE, URINE (UA) 3+ (NEGATIVE); KETONES,URINE TRACE (NEGATIVE); LEUKOCYTE ESTERASE ,URINE NEGATIVE (NEGATIVE); NITRITE,URINE NEGATIVE (NEGATIVE); PH,URINE 6.5 (5-9); PROTEIN,URINE 2+ (NEGATIVE)
[2021-05-01 16:32] LABS: ALBUMIN 4.8 GM/DL (3.2-4.5); CHLORIDE 101 MMOL/L (98-107); POTASSIUM 3.5 MMOL/L (3.6-5.0); SODIUM 139 MMOL/L (135-145)
[2021-05-01 16:33] LABS: CALCIUM 10.3 MG/DL (8.5-10.1)
[2021-05-01 16:34] LABS: GLUCOSE 145 MG/DL (70-105)
--- NOTE | 2021-05-01 16:34 | ED Abdominal Pain ---
General Stated Complaint: ABD PAIN Source of Information: Patient Exam Limitations: No Limitations (MICHELL KAUFMAN STUDENT) History of Present Illness Date Seen by Provider: May 01, 2021 Time Seen by Provider: 16:20 Initial Comments Veena is a 36 yo F with a history of hypertriglyceridemia, GERD, gastric ulcers, and x1 who presents to ED today for epigastric pain since saturday. Pt states that her pain began Saturday and has been constant since. Pain is of sharp and burning nature, radiates around her sides to her back, and worsens with eating and laying down. Rates the pain 8/10. She has taken aspirin and nexium for her symptoms which have not helped. Pt is concerned her triglycerides are involved as she has been warned it can cause pancreatitis. Pt denies n/v, fever, chills, dysuria, cp, sob. Timing/Duration: 3-4 Days Severity/Quality: Moderate Location: Epigastric Radiation: RUQ, LUQ, Back Activities at Onset: None Modifying Factors: Improves With Eating, Improves With Lying down Associated Symptoms: Back Pain (MICHELL KAUFMAN MED STUDENT) Allergies and Home Medications Allergies Coded Allergies: morphine (Verified Allergy, Unknown, 05/01/21) Patient Home Medication List Home Medication List Reviewed: Yes (NICOLE YUNG) Hydrocodone/Acetaminophen (Hydrocodone-Acetamin 5-325 mg) 1 Each Tablet, 1 TAB PO Q6H PRN for PAIN-MODERATE (5-7) Prescribed by: NICOLE YUNG on 05/01/211754 Ondansetron (Ondansetron Odt) 4 Mg Tab.rapdis, 4 MG PO Q6H PRN for NAUSEA/VOMITING-1ST LINE Prescribed by: NICOLE YUNG on 05/01/211753 Sucralfate (Carafate) 1 Gm Tablet, 1 GM PO QIDACHS Prescribed by: NICOLE YUNG on 05/01/211753 Review of Systems Review of Systems Constitutional: No chills, No fever EENTM: No Blurred Vision, No Double Vision Respiratory: Denies Cough, Denies Shortness of Air Cardiovascular: Denies Chest Pain, Denies Lightheadedness Gastrointestinal: Abdominal Pain; Denies Nausea, Denies Vomiting; Other (pain with eating) Genitourinary: Denies Burning, Denies Discharge Musculoskeletal: back pain; No muscle pain, No muscle stiffness, No muscle cramps Skin: No change in color, No change in hair/nails Psychiatric/Neurological: Denies Anxiety, Denies Depressed Endocrine: Denies Excessive Sweating, Denies Flushing (MICHELL KAUFMAN vogogo STUDENT) Past Wmjrlsl-Ntuktx-Ioguse Hx Patient Social History Tobacco Use?: No Use of E-Cig and/or Vaping dev: No (NICOLE YUNG) Physical Exam Vital Signs Vital Signs - First Documented 05/01/21 16:10 Temp 36.8 Pulse 99 Resp 20 B/P (MAP) 166/107 (126) Pulse Ox 97 O2 Delivery Room Air (NICOLE YUNG) Vital Signs Capillary Refill : (MICHELL KAUFMAN vogogo STUDENT) Height/Weight/BMI Height: '" Weight: lbs. oz. kg; BMI Method: General Appearance: WD/WN, no apparent distress, obese HEENT: PERRL/EOMI, normal ENT inspection Neck: non-tender, full range of motion, supple, normal inspection Respiratory: chest non-tender, lungs clear, normal breath sounds, no respiratory distress, no accessory muscle use Cardiovascular: normal peripheral pulses, regular rate, rhythm, no edema, no gallop, no JVD, no murmur Peripheral Pulses: 2+ Dorsalis Pedis (R), 2+ Left Dors-Pedis (L), 2+ Radial Pulses (R), 2+ Radial Pulses (L) Gastrointestinal: normal bowel sounds, soft, no organomegaly, no pulsatile mass, tenderness Extremities: normal range of motion, non-tender, normal inspection, no pedal edema, no calf tenderness Back: normal inspection, no CVA tenderness, no vertebral tenderness Neurologic/Psychiatric: no motor/sensory deficits, alert, normal mood/affect, oriented x 3 Skin: normal color, warm/dry (MICHELL KAUFMAN vogogo STUDENT) Progress/Results/Core Measures Results/Orders Lab Results Laboratory Tests Test 05/01/21 16:13 05/01/21 16:24 Range/Units White Blood Count 8.3 4.3-11.0 10^3/uL Red Blood Count 4.79 3.80-5.11 10^6/uL Hemoglobin 14.3 11.5-16.0 g/dL Hematocrit 43 35-52 % Mean Corpuscular Volume 90 80-99 fL Mean Corpuscular Hemoglobin 30 25-34 pg Mean Corpuscular Hemoglobin Concent 33 32-36 g/dL Red Cell Distribution Width 16.1 H 10.0-14.5 % Platelet Count 214 130-400 10^3/uL Mean Platelet Volume 9.4 9.0-12.2 fL Immature Granulocyte % (Auto) 1 % Neutrophils (%) (Auto) 60 42-75 % Lymphocytes (%) (Auto) 26 12-44 % Monocytes (%) (Auto) 8 0-12 % Eosinophils (%) (Auto) 4 0-10 % Basophils (%) (Auto) 1 0-10 % Neutrophils # (Auto) 4.9 1.8-7.8 10^3/uL Lymphocytes # (Auto) 2.2 1.0-4.0 10^3/uL Monocytes # (Auto) 0.7 0.0-1.0 10^3/uL Eosinophils # (Auto) 0.3 0.0-0.3 10^3/uL Basophils # (Auto) 0.1 0.0-0.1 10^3/uL Immature Granulocyte # (Auto) 0.1 0.0-0.1 10^3/uL Sodium Level 139 135-145 MMOL/L Potassium Level 3.5 L 3.6-5.0 MMOL/L Chloride Level 101 98-107 MMOL/L Carbon Dioxide Level 25 21-32 MMOL/L Anion Gap 13 5-14 MMOL/L Blood Urea Nitrogen 10 7-18 MG/DL Creatinine 0.90 0.60-1.30 MG/DL Estimat Glomerular Filtration Rate 70 BUN/Creatinine Ratio 11 Glucose Level 145 H 70-105 MG/DL Calcium Level 10.3 H 8.5-10.1 MG/DL Corrected Calcium 8.5-10.1 MG/DL Total Bilirubin 0.6 0.1-1.0 MG/DL Aspartate Amino Transf (AST/SGOT) 94 H 5-34 U/L Alanine Aminotransferase (ALT/SGPT) 70 H 0-55 U/L Alkaline Phosphatase 116 40-136 U/L C-Reactive Protein High Sensitivity 1.95 H 0.00-0.50 MG/DL Total Protein 8.4 H 6.4-8.2 GM/DL Albumin 4.8 H 3.2-4.5 GM/DL Lipase 230 H 8-78 U/L Urine Color YELLOW Urine Clarity CLEAR Urine pH 6.5 5-9 Urine Specific [place] 1.015 L 1.016-1.022 Urine Protein 2+ H NEGATIVE Urine Glucose (UA) 3+ H NEGATIVE Urine Ketones TRACE H NEGATIVE Urine Nitrite NEGATIVE NEGATIVE Urine Bilirubin NEGATIVE NEGATIVE Urine Urobilinogen 0.2 < = 1.0 MG/DL Urine Leukocyte Esterase NEGATIVE NEGATIVE Urine RBC (Auto) TRACE-I H NEGATIVE Urine RBC NONE /HPF Urine WBC 0-2 /HPF Urine Squamous Epithelial Cells 5-10 /HPF Urine Crystals NONE /LPF Urine Bacteria FEW H /HPF Urine Casts NONE /LPF Urine Mucus NEGATIVE /LPF Urine Culture Indicated YES (NICOLE YUNG) My Orders Orders - NICOLE YUNG Ua Culture If Indicated (05/01/21 16:10) Urine Bedside (05/01/21 16:10) Cbc With Automated Diff (05/01/21 16:10) Comprehensive Metabolic Panel (05/01/21 16:10) Hs C Reactive Protein (05/01/21 16:10) Lipase (05/01/21 16:10) Lidocaine 2% Viscous 15 Ml (Xylocaine Vi (05/01/21 16:30) Famotidine Tablet (Pepcid Tablet) (05/01/21 16:23) Antacid Suspension (Mylanta Suspension (05/01/21 16:30) Lactated Ringers (Lr 1000 Ml Iv Solution (05/01/21 16:23) Urine Culture (05/01/21 16:24) Ct Abdomen/Pelvis W (05/01/21 17:06) Fentanyl Inj (Sublimaze Injection) (05/01/21 17:15) Iohexol Injection (Omnipaque 350 Mg/Ml 1 (05/01/21 17:45) Received Contrast (Hold Metformin- Contr (05/01/21 17:45) Ns (Ivpb) (Sodium Chloride 0.9% Ivpb Bag (05/01/21 17:45) (NICOLE YUNG) Medications Given in ED Current Medications Medications Dose Ordered Sig/Eloina Route Start Time Stop Time Status Last Admin Dose Admin Al Hydrox/Mg Hydrox/Simethicone 30 ml ONCE ONCE PO 05/01/21 16:30 05/01/21 16:31 DC 05/01/21 16:31 30 ML Fentanyl Citrate 50 mcg ONCE ONCE IVP 05/01/21 17:15 05/01/21 17:16 DC 05/01/21 17:28 50 MCG Iohexol 100 ml ONCE ONCE IV 05/01/21 17:45 05/01/21 17:46 DC 05/01/21 17:37 100 ML Lidocaine HCl 15 ml ONCE ONCE PO 05/01/21 16:30 05/01/21 16:31 DC 05/01/21 16:31 15 ML Sodium Chloride 100 ml ONCE ONCE IV 05/01/21 17:45 05/01/21 17:46 DC 05/01/21 17:37 80 ML (NICOLE YUNG) Vital Signs/I&O 05/01/21 16:10 Temp 36.8 Pulse 99 Resp 20 B/P (MAP) 166/107 (126) Pulse Ox 97 O2 Delivery Room Air (NICOLE YUNG) Progress Progress Note #1: Time: 17:07 Progress Note I attest that I saw this patient alongside the medical student and agree with his documented history, physical exam and review of systems except as otherwise noted. Patient had no improvement in her pain after GI cocktail. 50 mg of fentanyl and a CT to rule out significant pancreatic pathology was ordered. Still suspect gastritis etc. Bilirubin is normal. Progress Note #2: Time: 17:49 Progress Note Patient's symptoms are significant improved with fentanyl and fluids. CT is largely unrevealing. We will have our partner look for the radiologist read and if it looks okay we will send her home with some hydrocodone, clear liquid diet, Zofran and follow-up with Dr. Chauhan as necessary (NICOLE YUNG) Diagnostic Imaging Diagonstic Imaging: CT Plain Films/CT/US/NM/MRI: abdomen, pelvis Comments [facility] [place] NAME: [facility]OWVEENA [facility] REC#: [id number] PT STATUS: REG ER : 1985 PHYSICIAN: NICOLE YNUG MD ADMIT DATE: 05/01/21/ER Draft Date of Exam:05/01/21 CT ABDOMEN/PELVIS W PROCEDURE: CT abdomen and pelvis with contrast. TECHNIQUE: Multiple contiguous axial images were obtained through the abdomen and pelvis after administration of intravenous contrast. Auto Exposure Controls were utilized during the CT exam to meet ALARA standards for radiation dose reduction. All CT scans use one or more of the following dose optimizing techniques: Automated exposure control, MA and/or KvP adjustment based on patient size and exam type or iterative reconstruction. INDICATION: 36-year-old female presents with epigastric pain. COMPARISONS: None. FINDINGS: Lung bases show some subpleural patchy alveolar infiltrates. Multiple subcentimeter nodules in both lower lobes. These have some central calcifications and most likely represent granulomas. There is also a subcentimeter nodule in the right middle lobe. There is a small subpleural infiltrate in the right costophrenic angle. There is no effusion or pneumothorax. Cardiac contour is normal. There is grade 3 hepatic steatosis with hepatomegaly. Gallbladder is nondistended. Spleen and GE junction are grossly normal. Stomach and duodenal sweep are unremarkable. There is some minimal stranding near the head of the pancreas. An element of mild pancreatitis cannot be entirely excluded. The body and tail show sharp margins. Adrenals are normal. Kidneys appear normal in size, position, and contour with symmetrical perfusion and excretion of contrast. Both ureters are seen intermittently through their course and appear unremarkable. Partially filled bladder is also normal. Nonopacified loops of small bowel are normal. Appendix is unremarkable. Large bowel contains fecal material and gas. The distal colon is mostly decompressed. There appears to be a 3.7 cm right adnexal cyst, most likely a complicated ovarian cyst. This could be additionally characterized by ultrasound. Visualized vasculature shows normal caliber of the aorta, iliac and femoral arteries with normal origins of the visceral arteries. Bone windows show some scattered Schmorl's nodes but no lytic or blastic changes. IMPRESSION: 1. Scattered subcentimeter nodules with central calcifications in the right middle lobe and both lower lobes. These are most likely granulomas. A dedicated postcontrast CT chest would be of further value with three-month follow. 2. Some patchy subpleural infiltrates in the right lower lobe. 3. Grade 3 hepatic steatosis. 4. There is some minimal stranding near the head of the pancreas. An element of pancreatitis is within the differential. Correlation with serology recommended. 5. 3.7 cm right adnexal cyst, most likely an ovarian cyst, but correlation with ultrasound would be of further value. Additional nonemergent findings as described above. Dictated on workstation # [id number] Dict: 05/01/21 1743 Trans: 05/01/21 1753 [id number] Interpreted by: ALEXANDRA PAN MD Electronically signed by: Reviewed: Reviewed by Me (NICOLE YUNG) Departure Impression Primary Impression: Pancreatitis Qualified Codes: K85.90 - Acute pancreatitis without necrosis or infection, unspecified Additional Impression: GERD (gastroesophageal reflux disease) Qualified Codes: K21.9 - Gastro-esophageal reflux disease without esophagitis Disposition: HOME, SELF-CARE Condition: Stable Departure-Patient Inst. Decision time for Depature: 17:50 (NICOLE YUNG) Referrals: VALERIE CHAUHAN JACQUELINE S DO (PCP/Family) Primary Care Physician Patient Instructions: Pancreatitis (DC) Add. Discharge Instructions: If you are having pain you can take Tums, Rolaids, Maalox, Mylanta and Tylenol. Hydrocodone 1 tablet every 6 hours as necessary for breakthrough pain. Zofran 1 tablet under the tongue every 6 hours necessary for nausea or vomiting. Continue taking your Nexium. Carafate 1 tablet half an hour before meals and at bedtime for a total of 4 times a day for the next 2 weeks. Carafate will help line stomach with a protective medication before you eat. Stick to a liquid, bland diet until your symptoms of nausea and pain go away. Once you are symptom-free without medications to mask the symptoms then you may start advancing her diet towards a more normal diet. Avoid spicy foods. Avoid all alcohol. If you have persistent symptoms you may follow-up with your primary care doctor or with Dr. Chauhan, general surgery. Scripts Sucralfate (Carafate) 1 Gm Tablet 1 GM PO QIDACHS for 14 Days, #56 TAB 0 Refills Prov: NICOLE YUNG 05/01/21 Hydrocodone/Acetaminophen (Hydrocodone-Acetamin 5-325 mg) 1 Each Tablet 1 TAB PO Q6H PRN for PAIN-MODERATE (5-7), #12 TAB 0 Refills Prov: NICOLE YUNG 05/01/21 Ondansetron (Ondansetron Odt) 4 Mg Tab.rapdis 4 MG PO Q6H PRN for NAUSEA/VOMITING-1ST LINE, #12 TAB 0 Refills Prov: NICOLE YUNG 05/01/21 Work/School Note: Work Release Form Date Seen in the Emergency Department: May 01, 2021 Return to Work: May 04, 2021 Restrictions: No Restrictions Copy Copies To 1: VALERIE CHAUHAN DO; [facility] NATHAN MED STUDENT May 01, 2021 16:34 NICOLE YUNG May 01, 2021 17:08
[2021-05-01 16:35] LABS: TOTAL PROTEIN 8.4 GM/DL (6.4-8.2)
[2021-05-01 16:36] LABS: BILIRUBIN,TOTAL 0.6 MG/DL (0.1-1.0); CARBON DIOXIDE 25 MMOL/L (21-32)
[2021-05-01 16:38] LABS: ALKALINE PHOSPHATASE 116 U/L (40-136); GFR ESTIMATED 70
[2021-05-01 16:39] LABS: BUN/CREATININE RATIO 11
[2021-05-01 16:41] LABS: ALANINE AMINOTRANSFERASE 70 U/L (0-55); LIPASE 230 U/L (8-78)
[2021-05-01 16:42] LABS: BACTERIA,URINE FEW /HPF; WBC,URINE 0-2 /HPF
[2021-05-01] MEDS ORDERED: fentaNYL INJ 100 MCG/2 ML AMP IVP ONE (17:15)
[2021-05-01] MEDS ORDERED: HOLD METFORMIN - RECEIVED CONTRAST 20 ML VIAL IV SCH (17:45)
[2021-05-01] MEDS ORDERED: IOHEXOL 350 MG/ML 100 ML (OMNIPAQUE 350) VIAL IV ONE (17:45)
[2021-05-01] MEDS ORDERED: NS 100 ML (IVPB) BAG IV ONE (17:45)
[2021-05-01] MEDS ORDERED: ACHD5005 PO (17:54)
[2021-05-01] MEDS ORDERED: SUCR1TAB36 PO (17:54)
[2021-05-01] MEDS ORDERED: ONDA4TAB11 PO (17:54)
--- NOTE | 2021-05-01 17:54 | Diagnostic Imaging Report ---
PROCEDURE: CT abdomen and pelvis with contrast. TECHNIQUE: Multiple contiguous axial images were obtained through the abdomen and pelvis after administration of intravenous contrast. Auto Exposure Controls were utilized during the CT exam to meet ALARA standards for radiation dose reduction. All CT scans use one or more of the following dose optimizing techniques: Automated exposure control, MA and/or KvP adjustment based on patient size and exam type or iterative reconstruction. INDICATION: 36-year-old female presents with epigastric pain. COMPARISONS: None. FINDINGS: Lung bases show some subpleural patchy alveolar infiltrates. Multiple subcentimeter nodules in both lower lobes. These have some central calcifications and most likely represent granulomas. There is also a subcentimeter nodule in the right middle lobe. There is a small subpleural infiltrate in the right costophrenic angle. There is no effusion or pneumothorax. Cardiac contour is normal. There is grade 3 hepatic steatosis with hepatomegaly. Gallbladder is nondistended. Spleen and GE junction are grossly normal. Stomach and duodenal sweep are unremarkable. There is some minimal stranding near the head of the pancreas. An element of mild pancreatitis cannot be entirely excluded. The body and tail show sharp margins. Adrenals are normal. Kidneys appear normal in size, position, and contour with symmetrical perfusion and excretion of contrast. Both ureters are seen intermittently through their course and appear unremarkable. Partially filled bladder is also normal. Nonopacified loops of small bowel are normal. Appendix is unremarkable. Large bowel contains fecal material and gas. The distal colon is mostly decompressed. There appears to be a 3.7 cm right adnexal cyst, most likely a complicated ovarian cyst. This could be additionally characterized by ultrasound. Visualized vasculature shows normal caliber of the aorta, iliac and femoral arteries with normal origins of the visceral arteries. Bone windows show some scattered Schmorl's nodes but no lytic or blastic changes. IMPRESSION: 1. Scattered subcentimeter nodules with central calcifications in the right middle lobe and both lower lobes. These are most likely granulomas. A dedicated postcontrast CT chest would be of further value with three-month follow. 2. Some patchy subpleural infiltrates in the right lower lobe. 3. Grade 3 hepatic steatosis. 4. There is some minimal stranding near the head of the pancreas. An element of pancreatitis is within the differential. Correlation with serology recommended. 5. 3.7 cm right adnexal cyst, most likely an ovarian cyst, but correlation with ultrasound would be of further value. Additional nonemergent findings as described above. Dictated by: Dictated on workstation # [id number]
[2021-05-01 18:10] VITALS: BP 154/99
== END 2021-05-01 18:10 | disposition home or self-care (01) ==
LOC: ER 15:56
DX: K85.90 Acute pancreatitis without necrosis or infection, unspecified (principal); K21.9 Gastro-esophageal reflux disease without esophagitis; E66.9 Obesity, unspecified
CPT/HCPCS: 36415; 74177; 80053; 81000; 83690; 84703; 85025; 86141; 87077; 87088

== ENCOUNTER → 2021-10-09 | Outpatient (CLI) | payer MEDICAID ==
[~2021-10-09] MED LIST: ACHD5005 PO; ONDA4TAB11 PO; SUCR1TAB36 PO
[2021-10-09 14:37] LABS: ALANINE AMINOTRANSFERASE 53 U/L (0-55); ALBUMIN 4.7 GM/DL (3.2-4.5); ALKALINE PHOSPHATASE 93 U/L (40-136); BILIRUBIN,TOTAL 0.4 MG/DL (0.1-1.0); BUN/CREATININE RATIO 19; CALCIUM 9.9 MG/DL (8.5-10.1); CARBON DIOXIDE 24 MMOL/L (21-32); CHLORIDE 100 MMOL/L (98-107); CHOLESTEROL 350 MG/DL (< 200); CREATININE SERUM 0.67 MG/DL (0.60-1.30); GFR ESTIMATED 115; GLUCOSE 114 MG/DL (70-105); HDL CHOLESTEROL 37 MG/DL (40-60); POTASSIUM 3.9 MMOL/L (3.6-5.0); SODIUM 138 MMOL/L (135-145); TOTAL PROTEIN 8.2 GM/DL (6.4-8.2); TRIGLYCERIDES 1047 MG/DL (<150); VLDL CHOLESTEROL 209 MG/DL (5-40)
[2021-10-09 14:59] LABS: FREE T4 (FREE THYROXINE) 0.96 NG/DL (0.70-1.48)
== END ==
LOC: LAB 13:29
PROVIDERS: ATTEND Nurse Practitioner Family
DX: E78.5 Hyperlipidemia, unspecified (principal); E03.9 Hypothyroidism, unspecified; E11.9 Type 2 diabetes mellitus without complications; I10 Essential (primary) hypertension
CPT/HCPCS: 36415; 80053; 80061; 83036; 84439; 84443; 86431